=== PATIENT | female | born 2000 | race Caucasian/White ===

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

== ENCOUNTER 2019-09-02 03:12 | Emergency (ER) | payer OTHER ==
[~2019-09-02] VITALS: Ht 154.9 cm; Wt 53.6 kg
[2019-09-02 03:21] VITALS: Ht 154.9 cm; Wt 53.6 kg
[2019-09-02 05:16] LABS: AMPHETAMINE QUAL UR NONE DETECTED (See below)
[2019-09-02 05:17] VITALS: BP 102/69
== END 2019-09-02 05:17 | disposition home or self-care (01) ==
LOC: ED 03:12
PROVIDERS: Emergency Medicine
DX: F41.9 Anxiety disorder, unspecified (principal); R06.00 Dyspnea, unspecified
CPT/HCPCS: Q0163

== ENCOUNTER 2019-10-29 17:32 | Emergency (ER) | payer OTHER ==
[~2019-10-29] VITALS: Ht 154.9 cm; Wt 53.1 kg
[2019-10-29 17:35] VITALS: BP 106/65; Ht 154.9 cm; Wt 53.1 kg
== END 2019-10-29 18:55 | disposition home or self-care (01) ==
LOC: ED 17:32
DX: M71.21 Synovial cyst of popliteal space [Baker], right knee (principal); S83.91XA Sprain of unspecified site of right knee, initial encounter; X58.XXXA Exposure to other specified factors, initial encounter; Y93.89 Activity, other specified; Y92.89 Other specified places as the place of occurrence of the external cause; Y99.8 Other external cause status
CPT/HCPCS: Q0092